=== PATIENT | female | born 1985 | race African-American/Black ===

== ENCOUNTER 2017-12-10 18:58 | Emergency (ER) | payer OTHER ==
[~2017-12-10] VITALS: Ht 149.9 cm; Wt 66.4 kg
[2017-12-10] MEDS ORDERED: MELATONIN5 M1 PO (19:23)
[2017-12-10] MEDS ORDERED: TRAZODONE PO (19:23)
[2017-12-10] MEDS ORDERED: BUTALB-APAP-CA1 EACH PO (20:23)
[2017-12-10] MEDS ORDERED: IBUPROFEN 800800 M1 PO (20:50)
== END 2017-12-10 20:56 | disposition home or self-care (01) ==
LOC: ER 18:58
DX: G43.909 Migraine, unspecified, not intractable, without status migrainosus (principal); Z88.0 Allergy status to penicillin

== ENCOUNTER 2018-01-13 12:48 | Emergency (ER) | payer OTHER ==
[~2018-01-13] VITALS: Ht 149.9 cm; Wt 64.0 kg
[~2018-01-13 12:48] MED LIST: BUTALB-APAP-CA1 EACH PO; IBUPROFEN 800800 M1 PO; MELATONIN5 M1 PO; TRAZODONE PO
[2018-01-13] MEDS ORDERED: AMITRIPTYLINE H25 M2 PO (12:55)
[2018-01-13] MEDS ORDERED: AZITHROMYCIN 2250 MG PO (13:48)
[2018-01-13] MEDS ORDERED: IBUPROFEN 800800 M1 PO (14:02)
[2018-01-13 15:30] VITALS: BP 112/68
== END 2018-01-13 15:32 | disposition home or self-care (01) ==
LOC: ER 12:48
DX: J02.0 Streptococcal pharyngitis (principal); F41.9 Anxiety disorder, unspecified; F32.9 Major depressive disorder, single episode, unspecified; Z88.0 Allergy status to penicillin